=== PATIENT | female | born 1995 | race Caucasian/White ===

== ENCOUNTER 2018-02-26 22:10 | Inpatient (IN) | payer MEDICAID, OTHER ==
[~2018-02-26] VITALS: Ht 170.2 cm; Wt 92.8 kg
[2018-02-26] MEDS: MIDAZOLAM DRIP 50 mg/50mL 50 ML IV SCH (04:00)
[~2018-02-26 22:10] MED LIST: ALBUPOW26
[2018-02-26] MEDS ORDERED: methylPREDNISolone SOD SUCC 125 MG/2 ML VL ONE (22:22)
[2018-02-26 22:29] VITALS: BP 162/103
[2018-02-26] MEDS ORDERED: MIDAZOLAM DRIP 50 mg/50mL 50 ML IV ONE (22:43)
[2018-02-26] MEDS ORDERED: SODIUM CHLORIDE 0.9% 1,000 ML IV ONE (22:45)
[2018-02-26] MEDS ORDERED: ALBUTEROL SULF 2.5 MG/0.5ML(0.5%) NEB SOLN NEB ONE (22:45)
[2018-02-26 22:55] LABS: Hematocrit 45.7 % (36.0-46.0); Hemoglobin 14.3 g/dL (12.2-16.2); Mean Corpuscular Hemoglobin 27.9 pg (28.0-32.0); Mean Corpuscular Hgb Conc. 31.2 g/dL (32.0-36.0); Mean Corpuscular Volume 89.4 fL (80.0-100.0); Platelet Count (auto) 306 10^3/uL (140-450); Red Blood Cells 5.12 10^6/uL (4.0-5.20); Red Cell Distribution Width 14.4 % (11.8-14.3); White Blood Cell 19.4 10^3/uL (4.4-10.8)
[2018-02-26 22:57] LABS: Basophils % (manual) 0 (0.0-2.0); Blast Cells 0; Eosinophils % (manual) 0 (0-7); Metamyelocytes % 0; Myelocytes % 0; Promyelocytes % 0; Reactive Lymphocytes 0
[2018-02-26 23:06] LABS: INR 0.99 (0.9-1.15); Partial Thromboplastin Time 29.6 sec (23.78-33.04); Prothrombin Time 10.6 sec (9.27-12.13)
[2018-02-26 23:08] LABS: Alanine Aminotransferase 203 U/L (13-56); Albumin 3.4 g/dL (3.4-5.0); Anion Gap 21 (5-15); Aspartate Aminotransferase 213 U/L (15-37); BUN/Creatinine Ratio 8.9; Blood Urea Nitrogen 16 mg/dL (7-18); Calcium 8.5 mg/dL (8.5-10.1); Carbon Dioxide 16 mmol/L (21-32); Chloride 104 mmol/L (98-107); GFR African American 44 mL/min; GFR Non-African American 36 mL/min; Glucose 219 mg/dL (74-106); Magnesium 2.6 mg/dL (1.6-2.6); Potassium 4.8 mmol/L (3.5-5.1); Sodium 141 mmol/L (136-145)
[2018-02-26 23:13] LABS: Alkaline Phosphatase 94 U/L (45-117); Bilirubin, Total 0.3 mg/dL (0.2-1.0); Total Protein 6.9 g/dL (6.4-8.2)
[2018-02-26] MEDS ORDERED: PROPOFOL 100 ML IV ONE (23:16)
[2018-02-26 23:21] LABS: Alcohol, Urine < 3.0 mg/dL (0-5); Amphetamine Screen, Urine NEGATIVE (NEGATIVE); Barbiturate Scree,Urine NEGATIVE (NEGATIVE); Benzodiazephine Screen, Urine NEGATIVE (NEGATIVE); Cannabinoid Screen, Urine POSITIVE (NEGATIVE); Cocaine Screen, Urine NEGATIVE (NEGATIVE); Opiate Scree,Urine NEGATIVE (NEGATIVE); Phencyclidine Screen, Urine NEGATIVE (NEGATIVE)
[2018-02-26 23:22] LABS: Urine Bacteria MOD /hpf (None Seen); Urine Blood 2+ /uL (Negative); Urine Hyaline Cast FEW /lpf (0 - 2); Urine Mucus FEW (None Seen); Urine Specific Gravity 1.015 (1.001-1.035); Urine WBC 6 /hpf (0 - 5)
[2018-02-26] MEDS ORDERED: cefTRIAXone 1GM/10ml IVPUSH 10 ML IV ONE (23:30)
[2018-02-26] MEDS ORDERED: VANCOMYCIN 1GM/250ML 250 ML IV ONE (23:30)
[2018-02-26 23:37] LABS: Band Neutrophils % (manual) 2; Lymphocytes % (manual) 40 (10.0-50.0); Monocytes % (manual) 7 (0-12)
[2018-02-26] MEDS ORDERED: IOHEXOL 350 MG/ML 100ML IJ ONE (23:37)
[2018-02-27] VITALS (80 sets, daily range): BP systolic 104–140; BP diastolic 45–92
[2018-02-27] MEDS ORDERED: IPRATROPIUM BROM 0.5 MG/2.5ML INH SOL NEB ONE (00:15)
[2018-02-27] MEDS ORDERED: ALBUTEROL SULF 2.5 MG/0.5ML(0.5%) NEB SOLN NEB ONE (00:15)
[2018-02-27] MEDS: PROPOFOL 100 ML IV SCH ×3 (05:43→22:59)
[2018-02-27] MEDS ORDERED: methylPREDNISolone SOD SUCC 125 MG/2 ML VL IV ONE (05:45)
[2018-02-27] MEDS ORDERED: DEXTROSE (50%) 50ML SYRG IV PRN (05:45)
[2018-02-27] MEDS ORDERED: SODIUM CHLORIDE 0.9% 1,000 ML IV SCH ×2 (05:45→07:00)
[2018-02-27] MEDS: ACCU-CHEK COMFORT CURVE STRIP VI SCH ×4 (05:52→23:42)
[2018-02-27] MEDS: InsuLIN REG 1unit/0.01ml Soln (100units/ml) SC SCH ×4 (05:54→23:42)
[2018-02-27 05:55] LABS: Basophils # (auto) 0 uL; Basophils % (auto) 0.1 % (0.0-2.0); Eosinophils # (auto) 0 uL; Eosinophils % (auto) 0.1 % (0.0-7.0); Hematocrit 45.7 % (36.0-46.0); Hemoglobin 15.2 g/dL (12.2-16.2); Lymphocytes # (auto) 0.4 uL; Lymphocytes % (auto) 2.3 % (10.0-50.0); Mean Corpuscular Hemoglobin 28.8 pg (28.0-32.0); Mean Corpuscular Hgb Conc. 33.2 g/dL (32.0-36.0); Mean Corpuscular Volume 86.5 fL (80.0-100.0); Monocytes # (auto) 0.4 uL; Monocytes % (auto) 2.2 % (0.0-12.0); Neutrophils # (auto) 18.2 uL; Neutrophils % (auto) 95.3 % (37.0-80.0); Platelet Count (auto) 281 10^3/uL (140-450); Red Blood Cells 5.28 10^6/uL (4.0-5.20); Red Cell Distribution Width 13.6 % (11.8-14.3); White Blood Cell 19.1 10^3/uL (4.4-10.8)
[2018-02-27] MEDS ORDERED: VANCOMYCIN PER PHARMACY 0 MG IV SCH (06:00)
[2018-02-27] MEDS: PIPERACILLIN-TAZOB 3.375GM 100 ML IV SCH ×4 (06:00→23:43)
[2018-02-27] MEDS ORDERED: SODIUM CHLORIDE 0.9% 500 ML IV ONE (06:00)
[2018-02-27] MEDS: IPRATROPIUM BROM 0.5 MG/2.5ML INH SOL NEB SCH ×5 (06:00→22:20)
[2018-02-27] MEDS: ALBUTEROL SULF 2.5 MG/0.5ML(0.5%) NEB SOLN NEB SCH ×5 (06:00→22:20)
[2018-02-27 06:29] LABS: BUN/Creatinine Ratio 11.9; Calcium 8.5 mg/dL (8.5-10.1); Potassium 3.4 mmol/L (3.5-5.1)
[2018-02-27] MEDS: PANTOPRAZOLE 40 MG/10 ML VIAL IV SCH (09:34)
[2018-02-27] MEDS: ENOXAPARIN SOD 40 MG/0.4 ML SYRINGE SC SCH (09:35)
[2018-02-27] MEDS: VANCOMYCIN 1,250 MG in D5W 5% 250 ML IV SCH ×2 (09:35→20:47)
[2018-02-27] MEDS ORDERED: ENOXAPARIN SOD 30 MG/0.3 ML SYRINGE SC SCH (10:00)
[2018-02-27] MEDS: MIDAZOLAM DRIP 50 mg/50mL 50 ML IV SCH ×2 (12:47→22:36)
[2018-02-27] MEDS: POTASSIUM CHL 20MEQ/100ML 100 ML IV SCH ×3 (13:07→16:30)
[2018-02-27] MEDS: SODIUM BICARBONATE 50ML VIAL 50 ML in D5W/SOD CHL 0.45% 1,000 ML IV SCH ×2 (14:30→22:58)
[2018-02-28] VITALS (98 sets, daily range): BP systolic 89–144; BP diastolic 42–87
[2018-02-28] MEDS: ALBUTEROL SULF 2.5 MG/0.5ML(0.5%) NEB SOLN NEB SCH ×6 (02:00→22:10)
[2018-02-28] MEDS: MIDAZOLAM DRIP 50 mg/50mL 50 ML IV SCH ×4 (02:05→23:00)
[2018-02-28] MEDS: IPRATROPIUM BROM 0.5 MG/2.5ML INH SOL NEB SCH ×6 (02:15→22:10)
[2018-02-28 03:42] LABS: Basophils # (auto) 0 uL; Basophils % (auto) 0.1 % (0.0-2.0); Eosinophils # (auto) 0 uL; Eosinophils % (auto) 0.1 % (0.0-7.0); Hematocrit 42.3 % (36.0-46.0); Lymphocytes # (auto) 1.9 uL; Lymphocytes % (auto) 9.8 % (10.0-50.0); Mean Corpuscular Hemoglobin 27.9 pg (28.0-32.0); Mean Corpuscular Hgb Conc. 33.1 g/dL (32.0-36.0); Mean Corpuscular Volume 84.3 fL (80.0-100.0); Monocytes # (auto) 1.6 uL; Monocytes % (auto) 8.2 % (0.0-12.0); Neutrophils % (auto) 81.8 % (37.0-80.0); Platelet Count (auto) 252 10^3/uL (140-450); Red Blood Cells 5.02 10^6/uL (4.0-5.20); Red Cell Distribution Width 13.9 % (11.8-14.3); White Blood Cell 19.6 10^3/uL (4.4-10.8)
[2018-02-28 04:03] LABS: Albumin 3.2 g/dL (3.4-5.0); Calcium 8.3 mg/dL (8.5-10.1); Magnesium 1.9 mg/dL (1.6-2.6); Potassium 3.4 mmol/L (3.5-5.1)
[2018-02-28 04:05] LABS: BUN/Creatinine Ratio 12.3
[2018-02-28 04:08] LABS: Bilirubin, Total 0.6 mg/dL (0.2-1.0); Total Protein 6.7 g/dL (6.4-8.2)
[2018-02-28] MEDS: InsuLIN REG 1unit/0.01ml Soln (100units/ml) SC SCH ×3 (06:00→18:14)
[2018-02-28] MEDS: ACCU-CHEK COMFORT CURVE STRIP VI SCH ×3 (06:02→18:14)
[2018-02-28] MEDS: PIPERACILLIN-TAZOB 3.375GM 100 ML IV SCH ×3 (06:03→18:11)
[2018-02-28] MEDS: POTASSIUM CHL 20MEQ/100ML 100 ML IV SCH ×2 (08:11→09:40)
[2018-02-28] MEDS: D5W/SOD CHL 0.45%/KCL 20MEQ 1,000 ML IV SCH ×2 (08:12→23:00)
[2018-02-28] MEDS: VANCOMYCIN 1,250 MG in D5W 5% 250 ML IV SCH ×2 (09:39→20:48)
[2018-02-28] MEDS: methylPREDNISolone SOD SUCC 40 MG/ML VL IV SCH ×2 (09:40→22:00)
[2018-02-28] MEDS: PANTOPRAZOLE 40 MG/10 ML VIAL IV SCH (09:40)
[2018-02-28] MEDS: ENOXAPARIN SOD 40 MG/0.4 ML SYRINGE SC SCH (09:40)
[2018-02-28] MEDS ORDERED: SODIUM CHLORIDE 0.9% 1,000 ML IV ONE (13:45)
[2018-03-01] VITALS (65 sets, daily range): BP systolic 99–182; BP diastolic 54–105
[2018-03-01] MEDS: PROPOFOL 100 ML IV SCH
[2018-03-01] MEDS: ACCU-CHEK COMFORT CURVE STRIP VI SCH ×4 (00:01→18:17)
[2018-03-01] MEDS: PIPERACILLIN-TAZOB 3.375GM 100 ML IV SCH ×5 (00:01→23:35)
[2018-03-01] MEDS: InsuLIN REG 1unit/0.01ml Soln (100units/ml) SC SCH ×4 (00:06→18:00)
[2018-03-01] MEDS: D5W/SOD CHL 0.45%/KCL 20MEQ 1,000 ML IV SCH ×3 (00:40→16:59)
[2018-03-01] MEDS: IPRATROPIUM BROM 0.5 MG/2.5ML INH SOL NEB SCH ×7 (02:17→22:22)
[2018-03-01] MEDS: ALBUTEROL SULF 2.5 MG/0.5ML(0.5%) NEB SOLN NEB SCH ×7 (02:17→22:22)
[2018-03-01] MEDS: MIDAZOLAM DRIP 50 mg/50mL 50 ML IV SCH (04:00)
[2018-03-01 04:15] LABS: Basophils # (auto) 0.1 uL; Basophils % (auto) 0.6 % (0.0-2.0); Eosinophils # (auto) 0 uL; Hematocrit 42.8 % (36.0-46.0); Hemoglobin 13.9 g/dL (12.2-16.2); Lymphocytes # (auto) 0.6 uL; Mean Corpuscular Hemoglobin 27.6 pg (28.0-32.0); Mean Corpuscular Hgb Conc. 32.6 g/dL (32.0-36.0); Mean Corpuscular Volume 84.9 fL (80.0-100.0); Neutrophils # (auto) 14.1 uL; Neutrophils % (auto) 89.4 % (37.0-80.0); Platelet Count (auto) 201 10^3/uL (140-450); Red Blood Cells 5.04 10^6/uL (4.0-5.20); Red Cell Distribution Width 13.8 % (11.8-14.3); White Blood Cell 15.8 10^3/uL (4.4-10.8)
[2018-03-01 04:38] LABS: BUN/Creatinine Ratio 8.7; Calcium 8.3 mg/dL (8.5-10.1); Magnesium 2.6 mg/dL (1.6-2.6)
[2018-03-01] MEDS ORDERED: IOHEXOL 350 MG/ML 100ML IJ ONE (08:55)
[2018-03-01] MEDS: ENOXAPARIN SOD 40 MG/0.4 ML SYRINGE SC SCH (09:41)
[2018-03-01] MEDS: VANCOMYCIN 1,250 MG in D5W 5% 250 ML IV SCH ×2 (10:00→19:56)
[2018-03-01] MEDS: PANTOPRAZOLE 40 MG/10 ML VIAL IV SCH (10:00)
[2018-03-01] MEDS: methylPREDNISolone SOD SUCC 40 MG/ML VL IV SCH ×2 (13:30→21:31)
[2018-03-01] MEDS: MORPHINE SULF INJ 2 MG/ML SYRINGE 1ML IV PRN (21:31)
[2018-03-01] MEDS: LORazepam 2MG/ML-1ML VIAL IV PRN (23:35)
[2018-03-02] VITALS (106 sets, daily range): BP systolic 112–190; BP diastolic 42–132
[2018-03-02] MEDS: PROPOFOL 100 ML IV SCH
[2018-03-02] MEDS: ACCU-CHEK COMFORT CURVE STRIP VI SCH ×5 (00:39→23:23)
[2018-03-02] MEDS: MORPHINE SULF INJ 2 MG/ML SYRINGE 1ML IV PRN (00:41)
[2018-03-02] MEDS ORDERED: METOPROLOL TARTRATE 1MG/1ML-5ML VIAL IV ONE ×4 (01:00→16:26)
[2018-03-02] MEDS: IPRATROPIUM BROM 0.5 MG/2.5ML INH SOL NEB SCH ×6 (02:20→21:57)
[2018-03-02] MEDS: ALBUTEROL SULF 2.5 MG/0.5ML(0.5%) NEB SOLN NEB SCH ×6 (02:20→21:57)
[2018-03-02] MEDS: VANCOMYCIN 1,250 MG in D5W 5% 250 ML IV SCH ×3 (02:27→19:01)
[2018-03-02] MEDS: ACETAMINOPHEN 650 mg PER 20 mL UD NG PRN ×2 (02:56→18:55)
[2018-03-02 03:57] LABS: Basophils # (auto) 0.1 uL; Basophils % (auto) 0.5 % (0.0-2.0); Eosinophils # (auto) 0 uL; Eosinophils % (auto) 0.1 % (0.0-7.0); Hemoglobin 15.8 g/dL (12.2-16.2); Lymphocytes # (auto) 0.8 uL; Lymphocytes % (auto) 4.4 % (10.0-50.0); Mean Corpuscular Hemoglobin 28.5 pg (28.0-32.0); Mean Corpuscular Hgb Conc. 33.7 g/dL (32.0-36.0); Mean Corpuscular Volume 84.6 fL (80.0-100.0); Monocytes # (auto) 0.6 uL; Monocytes % (auto) 3.4 % (0.0-12.0); Neutrophils # (auto) 17.3 uL; Neutrophils % (auto) 91.6 % (37.0-80.0); Nucleated Red Blood Cells % 0.1 %; Platelet Count (auto) 228 10^3/uL (140-450); Red Blood Cells 5.55 10^6/uL (4.0-5.20); Red Cell Distribution Width 13.9 % (11.8-14.3); White Blood Cell 18.9 10^3/uL (4.4-10.8)
[2018-03-02] MEDS ORDERED: LABETALOL HCL 5 MG/ML ML 20ML VIAL IV ONE (04:06)
[2018-03-02 04:20] LABS: BUN/Creatinine Ratio 9.4; Potassium 4.4 mmol/L (3.5-5.1)
[2018-03-02] MEDS: D5W/SOD CHL 0.45%/KCL 20MEQ 1,000 ML IV SCH ×3 (06:12→13:18)
[2018-03-02] MEDS: InsuLIN REG 1unit/0.01ml Soln (100units/ml) SC SCH ×5 (06:13→23:23)
[2018-03-02] MEDS: PIPERACILLIN-TAZOB 3.375GM 100 ML IV SCH ×4 (06:13→23:23)
[2018-03-02] MEDS: LABETALOL HCL 5 MG/ML ML 20ML VIAL IV PRN ×3 (08:55→23:25)
[2018-03-02] MEDS: methylPREDNISolone SOD SUCC 40 MG/ML VL IV SCH ×2 (09:54→22:15)
[2018-03-02] MEDS: PANTOPRAZOLE 40 MG/10 ML VIAL IV SCH (09:54)
[2018-03-02] MEDS: LORazepam 2MG/ML-1ML VIAL IV PRN (15:08)
[2018-03-02] MEDS: MIDAZOLAM DRIP 50 mg/50mL 50 ML IV SCH (23:15)
[2018-03-03] VITALS (105 sets, daily range): BP systolic 72–189; BP diastolic 45–154
[2018-03-03] MEDS: PROPOFOL 100 ML IV SCH
[2018-03-03] MEDS: METOPROLOL TARTRATE 1MG/1ML-5ML VIAL IV PRN ×3 (01:39→21:10)
[2018-03-03] MEDS: VANCOMYCIN 1,250 MG in D5W 5% 250 ML IV SCH ×3 (01:40→20:13)
[2018-03-03] MEDS: D5W/SOD CHL 0.45%/KCL 20MEQ 1,000 ML IV SCH ×3 (01:40→19:20)
[2018-03-03] MEDS: ALBUTEROL SULF 2.5 MG/0.5ML(0.5%) NEB SOLN NEB SCH ×6 (02:04→22:25)
[2018-03-03] MEDS: IPRATROPIUM BROM 0.5 MG/2.5ML INH SOL NEB SCH ×6 (02:04→22:25)
[2018-03-03 03:48] LABS: Basophils # (auto) 0 uL; Eosinophils # (auto) 0 uL; Red Cell Distribution Width 14.1 % (11.8-14.3)
[2018-03-03 03:50] LABS: Basophils % (auto) 0.1 % (0.0-2.0); Hematocrit 51.9 % (36.0-46.0); Hemoglobin 17.1 g/dL (12.2-16.2); Lymphocytes # (auto) 1.3 uL; Lymphocytes % (auto) 8.2 % (10.0-50.0); Mean Corpuscular Hemoglobin 28.1 pg (28.0-32.0); Mean Corpuscular Volume 85.1 fL (80.0-100.0); Monocytes # (auto) 1.5 uL; Monocytes % (auto) 9.2 % (0.0-12.0); Neutrophils # (auto) 13.3 uL; Neutrophils % (auto) 82.5 % (37.0-80.0); Platelet Count (auto) 246 10^3/uL (140-450); White Blood Cell 16.1 10^3/uL (4.4-10.8)
[2018-03-03 04:05] LABS: Calcium 9.4 mg/dL (8.5-10.1); Potassium 4.7 mmol/L (3.5-5.1)
[2018-03-03] MEDS: LABETALOL HCL 5 MG/ML ML 20ML VIAL IV PRN ×2 (05:53→12:17)
[2018-03-03] MEDS: PIPERACILLIN-TAZOB 3.375GM 100 ML IV SCH ×5 (05:53→23:55)
[2018-03-03] MEDS: ACCU-CHEK COMFORT CURVE STRIP VI SCH ×3 (05:54→17:57)
[2018-03-03] MEDS: InsuLIN REG 1unit/0.01ml Soln (100units/ml) SC SCH ×3 (06:16→18:00)
[2018-03-03] MEDS: ACETAMINOPHEN 650 mg PER 20 mL UD NG PRN (08:22)
[2018-03-03] MEDS: methylPREDNISolone SOD SUCC 40 MG/ML VL IV SCH ×2 (10:52→22:13)
[2018-03-03] MEDS: PANTOPRAZOLE 40 MG/10 ML VIAL IV SCH (10:52)
[2018-03-03 18:22] LABS: BUN/Creatinine Ratio 13.7; Calcium 9.4 mg/dL (8.5-10.1); Potassium 4.1 mmol/L (3.5-5.1)
[2018-03-03 18:25] LABS: Bilirubin, Total 0.7 mg/dL (0.2-1.0)
[2018-03-03 18:57] LABS: Urine Bacteria NONE SEEN /hpf (None Seen); Urine Blood Negative /uL (Negative); Urine Specific Gravity 1.006 (1.001-1.035); Urine WBC 1 /hpf (0 - 5)
[2018-03-03] MEDS: MORPHINE SULF INJ 2 MG/ML SYRINGE 1ML IV PRN (20:12)
[2018-03-03] MEDS: MIDAZOLAM DRIP 50 mg/50mL 50 ML IV SCH (23:15)
[2018-03-03] MEDS ORDERED: VASOPRESSIN 50 UNITS in D5W 5% 247.5 ML IV SCH (23:30)
[2018-03-04] VITALS (103 sets, daily range): BP systolic 61–197; BP diastolic 28–138
[2018-03-04] MEDS: PROPOFOL 100 ML IV SCH
[2018-03-04] MEDS: ACCU-CHEK COMFORT CURVE STRIP VI SCH ×4 (00:15→18:19)
[2018-03-04] MEDS: InsuLIN REG 1unit/0.01ml Soln (100units/ml) SC SCH ×4 (00:15→18:30)
[2018-03-04 00:16] LABS: Basophils # (auto) 0 uL; Basophils % (auto) 0.2 % (0.0-2.0); Eosinophils # (auto) 0 uL; Hemoglobin 16.9 g/dL (12.2-16.2); Lymphocytes # (auto) 2.3 uL; Lymphocytes % (auto) 12.2 % (10.0-50.0); Mean Corpuscular Hemoglobin 28.4 pg (28.0-32.0); Mean Corpuscular Hgb Conc. 33.1 g/dL (32.0-36.0); Mean Corpuscular Volume 85.7 fL (80.0-100.0); Monocytes # (auto) 2.3 uL; Monocytes % (auto) 12.6 % (0.0-12.0); Neutrophils # (auto) 13.9 uL; Nucleated Red Blood Cells % 0.1 %; Platelet Count (auto) 202 10^3/uL (140-450); Red Blood Cells 5.95 10^6/uL (4.0-5.20); Red Cell Distribution Width 14.6 % (11.8-14.3); White Blood Cell 18.6 10^3/uL (4.4-10.8)
[2018-03-04 00:23] LABS: Urine Bacteria NONE SEEN /hpf (None Seen); Urine Blood Negative /uL (Negative); Urine Specific Gravity 1.008 (1.001-1.035); Urine WBC 2 /hpf (0 - 5)
[2018-03-04 00:28] LABS: INR 1.03 (0.9-1.15); Partial Thromboplastin Time 27.5 sec (23.78-33.04)
[2018-03-04 00:34] LABS: Magnesium 2.8 mg/dL (1.6-2.6); Phosphorus 3.9 mg/dL (2.5-4.90)
[2018-03-04 00:51] LABS: Albumin 2.9 g/dL (3.4-5.0); BUN/Creatinine Ratio 12.8; Bilirubin, Total 0.7 mg/dL (0.2-1.0); Potassium 3.8 mmol/L (3.5-5.1); Total Protein 7.4 g/dL (6.4-8.2)
[2018-03-04 00:54] LABS: Bilirubin, Direct 0.3 mg/dL (0-0.2)
[2018-03-04] MEDS: VANCOMYCIN 1,250 MG in D5W 5% 250 ML IV SCH ×3 (01:48→18:19)
[2018-03-04] MEDS: ALBUTEROL SULF 2.5 MG/0.5ML(0.5%) NEB SOLN NEB SCH ×6 (01:52→22:09)
[2018-03-04] MEDS: IPRATROPIUM BROM 0.5 MG/2.5ML INH SOL NEB SCH ×6 (01:52→22:09)
[2018-03-04] MEDS: D5W/SOD CHL 0.45%/KCL 20MEQ 1,000 ML IV SCH ×2 (06:07→14:00)
[2018-03-04] MEDS: PIPERACILLIN-TAZOB 3.375GM 100 ML IV SCH ×3 (06:07→18:18)
[2018-03-04] MEDS: METOPROLOL TARTRATE 1MG/1ML-5ML VIAL IV PRN (06:08)
[2018-03-04 06:27] LABS: Urine Bacteria NONE SEEN /hpf (None Seen); Urine Blood Negative /uL (Negative); Urine Budding Yeast OCCASIONAL /hpf (None Seen); Urine Specific Gravity 1.006 (1.001-1.035); Urine WBC 1 /hpf (0 - 5)
[2018-03-04 06:33] LABS: Eosinophils # (auto) 0 uL; Monocytes # (auto) 2.1 uL; Nucleated Red Blood Cells % 0.1 %; Red Cell Distribution Width 14.6 % (11.8-14.3)
[2018-03-04 06:35] LABS: Partial Thromboplastin Time 27.1 sec (23.78-33.04); Prothrombin Time 10.7 sec (9.27-12.13)
[2018-03-04 06:36] LABS: Albumin 2.9 g/dL (3.4-5.0); BUN/Creatinine Ratio 14.1; Basophils # (auto) 0 uL; Basophils % (auto) 0.1 % (0.0-2.0); Calcium 9.2 mg/dL (8.5-10.1); Hematocrit 51.7 % (36.0-46.0); Hemoglobin 17.5 g/dL (12.2-16.2); Lymphocytes # (auto) 2.2 uL; Lymphocytes % (auto) 10.9 % (10.0-50.0); Mean Corpuscular Hgb Conc. 33.8 g/dL (32.0-36.0); Mean Corpuscular Volume 85.8 fL (80.0-100.0); Monocytes % (auto) 10.2 % (0.0-12.0); Neutrophils # (auto) 16.2 uL; Neutrophils % (auto) 78.8 % (37.0-80.0); Platelet Count (auto) 201 10^3/uL (140-450); Potassium 3.8 mmol/L (3.5-5.1); Red Blood Cells 6.03 10^6/uL (4.0-5.20); White Blood Cell 20.6 10^3/uL (4.4-10.8)
[2018-03-04 06:39] LABS: Bilirubin, Total 0.8 mg/dL (0.2-1.0); Total Protein 7.8 g/dL (6.4-8.2)
[2018-03-04 06:48] LABS: Bilirubin, Direct 0.3 mg/dL (0-0.2); Magnesium 2.7 mg/dL (1.6-2.6); Phosphorus 4.2 mg/dL (2.5-4.90)
[2018-03-04] MEDS ORDERED: SOD CHL 0.45% 1,000 ML IV ONE (08:00)
[2018-03-04] MEDS ORDERED: D5W/SOD CHL 0.45%/KCL 20MEQ 1,000 ML IV SCH (08:00)
[2018-03-04] MEDS: LABETALOL HCL 5 MG/ML ML 20ML VIAL IV PRN ×2 (09:02→16:06)
[2018-03-04] MEDS: methylPREDNISolone SOD SUCC 40 MG/ML VL IV SCH ×2 (09:32→21:30)
[2018-03-04] MEDS: PANTOPRAZOLE 40 MG/10 ML VIAL IV SCH (09:32)
[2018-03-04] MEDS ORDERED: DESMOPRESSIN ACET 4 MCG/1 ML AMPULE IV SCH (10:00)
[2018-03-04 12:47] LABS: Basophils # (auto) 0 uL; Basophils % (auto) 0.1 % (0.0-2.0); Eosinophils # (auto) 0 uL; Hematocrit 49.9 % (36.0-46.0); Hemoglobin 16.4 g/dL (12.2-16.2); Lymphocytes # (auto) 2.3 uL; Lymphocytes % (auto) 12.4 % (10.0-50.0); Mean Corpuscular Hemoglobin 28.2 pg (28.0-32.0); Mean Corpuscular Hgb Conc. 32.9 g/dL (32.0-36.0); Mean Corpuscular Volume 85.8 fL (80.0-100.0); Monocytes # (auto) 1.5 uL; Monocytes % (auto) 8.4 % (0.0-12.0); Neutrophils # (auto) 14.6 uL; Neutrophils % (auto) 79.1 % (37.0-80.0); Nucleated Red Blood Cells % 0.1 %; Platelet Count (auto) 184 10^3/uL (140-450); Red Blood Cells 5.82 10^6/uL (4.0-5.20); Red Cell Distribution Width 14.5 % (11.8-14.3); White Blood Cell 18.4 10^3/uL (4.4-10.8)
[2018-03-04 13:06] LABS: INR 0.98 (0.9-1.15); Partial Thromboplastin Time 26.6 sec (23.78-33.04); Prothrombin Time 10.5 sec (9.27-12.13)
[2018-03-04 13:29] LABS: Bilirubin, Direct 0.3 mg/dL (0-0.2); Magnesium 2.6 mg/dL (1.6-2.6); Phosphorus 4.1 mg/dL (2.5-4.90)
[2018-03-04 13:38] LABS: Albumin 2.8 g/dL (3.4-5.0); BUN/Creatinine Ratio 15.6; Bilirubin, Total 0.8 mg/dL (0.2-1.0); Calcium 9.3 mg/dL (8.5-10.1); Potassium 3.7 mmol/L (3.5-5.1); Total Protein 7.5 g/dL (6.4-8.2)
[2018-03-04] MEDS: ALBUMIN 5% 250 ML IV SCH ×2 (14:47→15:59)
[2018-03-04 15:32] LABS: Urine Bacteria MOD /hpf (None Seen); Urine Blood Negative /uL (Negative); Urine Mucus FEW (None Seen); Urine Specific Gravity 1.006 (1.001-1.035); Urine WBC 3 /hpf (0 - 5)
[2018-03-04] MEDS: VASOPRESSIN 50 UNITS in D5W 5% 247.5 ML IV SCH (15:59)
[2018-03-04 19:06] LABS: Basophils # (auto) 0 uL; Basophils % (auto) 0.1 % (0.0-2.0); Eosinophils # (auto) 0 uL; Hematocrit 43.1 % (36.0-46.0); Hemoglobin 13.9 g/dL (12.2-16.2); Lymphocytes # (auto) 2.2 uL; Lymphocytes % (auto) 13.9 % (10.0-50.0); Mean Corpuscular Hemoglobin 28.2 pg (28.0-32.0); Mean Corpuscular Hgb Conc. 32.3 g/dL (32.0-36.0); Mean Corpuscular Volume 87.2 fL (80.0-100.0); Monocytes % (auto) 6.2 % (0.0-12.0); Neutrophils # (auto) 12.6 uL; Neutrophils % (auto) 79.8 % (37.0-80.0); Nucleated Red Blood Cells % 0.1 %; Platelet Count (auto) 161 10^3/uL (140-450); Red Blood Cells 4.94 10^6/uL (4.0-5.20); Red Cell Distribution Width 14.6 % (11.8-14.3); Urine Amorphous Crystal FEW /hpf (None Seen); Urine Bacteria MOD /hpf (None Seen); Urine Blood Negative /uL (Negative); Urine Budding Yeast OCCASIONAL /hpf (None Seen); Urine Mucus FEW (None Seen); Urine WBC 13 /hpf (0 - 5); White Blood Cell 15.8 10^3/uL (4.4-10.8)
[2018-03-04 19:18] LABS: Bilirubin, Direct 0.4 mg/dL (0-0.2); Magnesium 2.4 mg/dL (1.6-2.6); Phosphorus 4.8 mg/dL (2.5-4.90)
[2018-03-04 20:08] LABS: INR 1.01 (0.9-1.15); Partial Thromboplastin Time 22.4 sec (23.78-33.04); Prothrombin Time 10.8 sec (9.27-12.13)
[2018-03-04 20:17] LABS: Albumin 3.3 g/dL (3.4-5.0); BUN/Creatinine Ratio 15.3; Bilirubin, Total 0.9 mg/dL (0.2-1.0); Calcium 9.1 mg/dL (8.5-10.1); Potassium 3.9 mmol/L (3.5-5.1)
[2018-03-04] MEDS ORDERED: HYDROCORTISONE SOD SUCC 100 MG/2ML INJ VIAL ONE (20:49)
[2018-03-04] MEDS ORDERED: ALBUMIN 5% 250 ML IV ONE ×2 (21:44→21:45)
[2018-03-04] MEDS ORDERED: NOREPINEPHRINE 8 MG/250ML KIT 250 ML IV ONE (21:44)
[2018-03-04] MEDS ORDERED: NOREPINEPHRINE 8 MG/250ML KIT 250 ML IV SCH (21:45)
[2018-03-04] MEDS ORDERED: ATROPINE SULFATE 0.4 MG/1 ML VIAL ONE (23:02)
[2018-03-04] MEDS: MIDAZOLAM DRIP 50 mg/50mL 50 ML IV SCH (23:15)
[2018-03-04] MEDS ORDERED: SODIUM CHLORIDE 0.9% 500 ML IV ONE (23:40)
[2018-03-04] MEDS ORDERED: ALBUMIN 25% 100 ML IV ONE (23:40)
[2018-03-05] VITALS (71 sets, daily range): BP systolic 94–200; BP diastolic 55–100
[2018-03-05] MEDS: PROPOFOL 100 ML IV SCH
[2018-03-05] MEDS: PIPERACILLIN-TAZOB 3.375GM 100 ML IV SCH ×3 (00:34→12:03)
[2018-03-05 00:46] LABS: Basophils # (auto) 0 uL; Basophils % (auto) 0.2 % (0.0-2.0); Eosinophils # (auto) 0 uL; Eosinophils % (auto) 0.1 % (0.0-7.0); Hematocrit 37.8 % (36.0-46.0); Lymphocytes # (auto) 2.3 uL; Lymphocytes % (auto) 15.3 % (10.0-50.0); Mean Corpuscular Hemoglobin 27.2 pg (28.0-32.0); Mean Corpuscular Hgb Conc. 31.7 g/dL (32.0-36.0); Monocytes # (auto) 1.2 uL; Monocytes % (auto) 8.3 % (0.0-12.0); Neutrophils # (auto) 11.5 uL; Neutrophils % (auto) 76.1 % (37.0-80.0); Platelet Count (auto) 142 10^3/uL (140-450); Red Cell Distribution Width 14.4 % (11.8-14.3); White Blood Cell 15.1 10^3/uL (4.4-10.8)
[2018-03-05 01:01] LABS: Urine Bacteria FEW /hpf (None Seen); Urine Blood Negative /uL (Negative); Urine Budding Yeast OCCASIONAL /hpf (None Seen); Urine Mucus FEW (None Seen); Urine Specific Gravity 1.032 (1.001-1.035); Urine WBC 17 /hpf (0 - 5)
[2018-03-05 01:03] LABS: INR 1.01 (0.9-1.15); Partial Thromboplastin Time 20.8 sec (23.78-33.04); Prothrombin Time 10.8 sec (9.27-12.13)
[2018-03-05 01:04] LABS: BUN/Creatinine Ratio 17.3; Calcium 8.6 mg/dL (8.5-10.1); Potassium 3.8 mmol/L (3.5-5.1)
[2018-03-05 01:06] LABS: Total Protein 6.3 g/dL (6.4-8.2)
[2018-03-05 01:07] LABS: Bilirubin, Direct 0.4 mg/dL (0-0.2); Magnesium 2.1 mg/dL (1.6-2.6)
[2018-03-05] MEDS: ALBUTEROL SULF 2.5 MG/0.5ML(0.5%) NEB SOLN NEB SCH ×4 (02:08→14:40)
[2018-03-05] MEDS: IPRATROPIUM BROM 0.5 MG/2.5ML INH SOL NEB SCH ×4 (02:08→14:40)
[2018-03-05] MEDS: VANCOMYCIN 1,250 MG in D5W 5% 250 ML IV SCH ×2 (02:13→09:54)
[2018-03-05] MEDS: VASOPRESSIN 50 UNITS in D5W 5% 247.5 ML IV SCH (05:01)
[2018-03-05] MEDS: ACCU-CHEK COMFORT CURVE STRIP VI SCH ×3 (06:00→12:03)
[2018-03-05] MEDS: InsuLIN REG 1unit/0.01ml Soln (100units/ml) SC SCH ×3 (06:00→12:03)
[2018-03-05 06:24] LABS: Hemoglobin 12.1 g/dL (12.2-16.2); Mean Corpuscular Hemoglobin 28.9 pg (28.0-32.0); Mean Corpuscular Hgb Conc. 33.5 g/dL (32.0-36.0); Mean Corpuscular Volume 86.2 fL (80.0-100.0); Platelet Count (auto) 142 10^3/uL (140-450); Red Blood Cells 4.18 10^6/uL (4.0-5.20); White Blood Cell 13.6 10^3/uL (4.4-10.8)
[2018-03-05 06:29] LABS: Basophils % (manual) 0 (0.0-2.0); Blast Cells 0; Eosinophils % (manual) 0 (0-7); Metamyelocytes % 0; Myelocytes % 0; Promyelocytes % 0; Reactive Lymphocytes 0
[2018-03-05 06:39] LABS: INR 0.98 (0.9-1.15); Partial Thromboplastin Time 20.5 sec (23.78-33.04); Prothrombin Time 10.5 sec (9.27-12.13)
[2018-03-05 06:43] LABS: Bilirubin, Direct 0.3 mg/dL (0-0.2); Magnesium 2.1 mg/dL (1.6-2.6); Phosphorus 4.2 mg/dL (2.5-4.90)
[2018-03-05 07:05] LABS: Band Neutrophils % (manual) 3; Lymphocytes % (manual) 22 (10.0-50.0); Monocytes % (manual) 6 (0-12)
[2018-03-05 08:23] LABS: Albumin 3.1 g/dL (3.4-5.0); Calcium 8.9 mg/dL (8.5-10.1); Potassium 3.8 mmol/L (3.5-5.1)
[2018-03-05 08:26] LABS: Bilirubin, Total 0.8 mg/dL (0.2-1.0); Total Protein 6.3 g/dL (6.4-8.2)
[2018-03-05] MEDS: PANTOPRAZOLE 40 MG/10 ML VIAL IV SCH (09:11)
[2018-03-05] MEDS: methylPREDNISolone SOD SUCC 40 MG/ML VL IV SCH (09:11)
[2018-03-05 12:11] LABS: Basophils # (auto) 0 uL; Basophils % (auto) 0.2 % (0.0-2.0); Eosinophils # (auto) 0 uL; Eosinophils % (auto) 0.1 % (0.0-7.0); Hematocrit 34.5 % (36.0-46.0); Hemoglobin 11.4 g/dL (12.2-16.2); Lymphocytes # (auto) 1.7 uL; Lymphocytes % (auto) 15.7 % (10.0-50.0); Mean Corpuscular Hemoglobin 28.4 pg (28.0-32.0); Mean Corpuscular Volume 86.2 fL (80.0-100.0); Monocytes # (auto) 0.8 uL; Neutrophils # (auto) 8.3 uL; Platelet Count (auto) 119 10^3/uL (140-450); Red Cell Distribution Width 14.1 % (11.8-14.3); White Blood Cell 10.7 10^3/uL (4.4-10.8)
[2018-03-05 12:21] LABS: Bilirubin, Direct 0.3 mg/dL (0-0.2); Phosphorus 3.5 mg/dL (2.5-4.90)
[2018-03-05 12:24] LABS: INR 0.99 (0.9-1.15); Partial Thromboplastin Time 21.3 sec (23.78-33.04); Prothrombin Time 10.6 sec (9.27-12.13)
[2018-03-05 12:25] LABS: BUN/Creatinine Ratio 24.5; Bilirubin, Total 0.8 mg/dL (0.2-1.0); Calcium 8.4 mg/dL (8.5-10.1); Potassium 3.4 mmol/L (3.5-5.1); Total Protein 6.2 g/dL (6.4-8.2)
[2018-03-05] MEDS: D5W/SOD CHL 0.45%/KCL 20MEQ 1,000 ML IV SCH (13:15)
[2018-03-05] MEDS ORDERED: POTASSIUM CHL 20MEQ/100ML 100 ML IV ONE (13:45)
[2018-03-05] MEDS: DOPamine 1600MCG/ML D5W 250 ML IV SCH ×2 (14:28)
[2018-03-05] MEDS ORDERED: HEPARIN IN NS 1000U/500ML (2UNIT/ML) 500 ML BAG/KIT IV ONE (14:45)
[2018-03-05] MEDS ORDERED: HEPARIN IV ONE (15:00)
== END 2018-03-05 18:10 | disposition expired | DRG 720 ==
LOC: EDSEX 22:10 → EDBD 22:10 → ER 22:14 → OVERFLOW 22:15 → ICU WEST 02-27 06:25
PROVIDERS: ADMIT Nurse Practitioner Family; ATTEND Internal Medicine
PROC: 5A1955Z Respiratory Ventilation, Greater than 96 Consecutive Hours (ICD-10-PCS; principal; 2018-02-26)
PROC: 0BH17EZ Insertion of Endotracheal Airway into Trachea, Via Natural or Artificial Opening (ICD-10-PCS; 2018-02-26)
PROC: 5A12012 Performance of Cardiac Output, Single, Manual (ICD-10-PCS; 2018-02-26)
DX: A41.9 Sepsis, unspecified organism (principal); I46.9 Cardiac arrest, cause unspecified; G93.6 Cerebral edema; I60.9 Nontraumatic subarachnoid hemorrhage, unspecified; J96.20 Acute and chronic respiratory failure, unspecified whether with hypoxia or hypercapnia; N17.0 Acute kidney failure with tubular necrosis; J45.902 Unspecified asthma with status asthmaticus; E44.1 Mild protein-calorie malnutrition; R40.20 Unspecified coma; G92 Toxic encephalopathy; G93.1 Anoxic brain damage, not elsewhere classified; N30.00 Acute cystitis without hematuria; R73.9 Hyperglycemia, unspecified; E87.6 Hypokalemia; E66.9 Obesity, unspecified; I71.9 Aortic aneurysm of unspecified site, without rupture; J32.0 Chronic maxillary sinusitis; J93.82 Other air leak; J98.2 Interstitial emphysema; Z66 Do not resuscitate; Z82.49 Family history of ischemic heart disease and other diseases of the circulatory system; Z83.3 Family history of diabetes mellitus; Z87.891 Personal history of nicotine dependence; Z68.32 Body mass index [BMI] 32.0-32.9, adult
CPT/HCPCS: 31500; 36415; 36600; 51702; 70450; 70486; 70496; 71045; 71250; 71275; 72125; 76700; 80048; 80053; 80202; 80307; 81001; 82010; 82150; 82248; 82805; 82962; 82977; 83036; 83605; 83690; 83735; 83930; 83935; 84100; 84300; 84484; 84702; 85007; 85025; 85027; 85379; 85610; 85730; 86900; 86901; 87040; 87070; 87081; 87086; 87205; 93005; 93306; 94002; 94003; 94640; 95819; 96361; 96365; 96375; A6257; C9113; J0461; J0696; J1644; J1815; J2250; J2543; J2704; J3480; J7060; P9047